=== PATIENT | male | born 1955 | race African-American/Black ===

== ENCOUNTER 2023-12-26 12:11 | Inpatient (IN) | payer OTHER, BC ==
[2023-12-26 12:56] VITALS: BMI 42.5
[2023-12-26] MEDS ORDERED: MAGNESIUM HYDROX 2400MG/30ML ORAL SUSPENSION 30 ML CUP PO PRN (14:08)
[2023-12-26] MEDS ORDERED: POLYETHYLENE GLYCOL (HEALTHYLAX) 3350 17 GM PACKET PO PRN (14:08)
[2023-12-26] MEDS ORDERED: NALOXONE HCL (KLOXXADO) 8 MG SPRAY NS PRN (14:08)
[2023-12-26] MEDS ORDERED: BISMUTH SUBSALICYLATE 262 MG/15 ML BTL PO PRN (14:08)
[2023-12-26] MEDS ORDERED: BENZONATATE 200 MG CAPSULE PO PRN (14:08)
[2023-12-26] MEDS ORDERED: guaiFENesin 600 MG TABLET.ER (FP) PO PRN (14:08)
[2023-12-26] MEDS ORDERED: ONDANSETRON *ODT* 4 MG TABLET SL PRN (14:08)
[2023-12-26] MEDS ORDERED: IBUPROFEN 400 MG TABLET (FP) PO PRN (14:08)
[2023-12-26] MEDS ORDERED: NALOXONE HCL 0.4 MG/ML VIAL IM PRN (14:08)
[2023-12-26] MEDS ORDERED: MAG HYDROX/AL HYDROX/SIMETH 30 ML UNIT-DOSE CUP PO PRN (14:08)
[2023-12-26] MEDS ORDERED: IBUPROFEN 600 MG TABLET (FP) PO PRN (14:08)
[2023-12-26] MEDS ORDERED: BENZOCAINE/MENTHOL (CHLORASEPTIC ) LOZENGE MM PRN (14:08)
[2023-12-26] MEDS ORDERED: DICYCLOMINE HCL 10 MG CAPSULE PO PRN (14:08)
[2023-12-26] MEDS ORDERED: ACETAMINOPHEN 325 MG TABLET (FP) PO PRN (14:08)
[2023-12-26] MEDS ORDERED: LOPERAMIDE HCL 2 MG CAPSULE PO PRN (14:08)
[2023-12-26] MEDS ORDERED: cloNIDine HCL 0.1 MG TABLET PO PRN (15:24)
[2023-12-26] MEDS: MELATONIN 5 MG TABLETS PO SCH (22:48)
[2023-12-26] MEDS: THIAMINE HCL 100 MG TABLET (FP) PO SCH (22:48)
[2023-12-27] MEDS: PRENATAL VITAMINS W/ FOLIC ACID TABLET (FP) PO SCH (09:43)
[2023-12-27] MEDS ORDERED: chlordiazePOXIDE HCL 25 MG CAPSULE PO PRN (10:13)
[2023-12-27] MEDS: chlordiazePOXIDE HCL 25 MG CAPSULE PO SCH (10:33)
[2023-12-27 11:58] LABS: HEMATOCRIT 36.5 % (35.4-49); HEMOGLOBIN 12.1 GM/dL (11.7-16.9); MCH 30.5 pg (25.7-33.7); MCHC 33.1 g/dl (32.0-35.9); MEAN CELL VOLUME 92.2 fl (80-96); MEAN PLT VOLUME 8.8 fl (7.5-11.1); PLATELET COUNT 197 10^3/uL (134-434); RBC 3.96 M/mm3 (4.00-5.60); RDW 13.7 % (11.9-15.9); WHITE BLOOD COUNT 7.4 K/mm3 (4.0-10.0)
[2023-12-27 12:08] LABS: CHLORIDE 108 mmol/L (98-107); POTASSIUM 3.3 mmol/L (3.5-5.1); SODIUM 143 mmol/L (136-145)
[2023-12-27 12:11] LABS: CALCIUM 8.1 mg/dL (8.5-10.1)
[2023-12-27 12:12] LABS: ANION GAP 10 mmol/L (4-13); BLOOD UREA NITROGEN 7.8 mg/dL (7-18); CO2 25 mmol/L (21-32); GLUCOSE,RANDOM 130 mg/dL (74-106)
[2023-12-27 12:15] LABS: CREATININE 0.8 mg/dL (0.55-1.3); SGOT/AST 10 U/L (15-37); SGPT/ALT 12 U/L (13-61)
[2023-12-27 12:16] LABS: BILIRUBIN,TOTAL 0.5 mg/dL (0.2-1); TOT PROT 6.4 g/dl (6.4-8.2)
[2023-12-27 12:18] LABS: ALK PHOS 61 U/L (45-117)
[2023-12-28] MEDS: POTASSIUM CHLORIDE ORAL LIQUID 20 MEQ/15 ML PO ONE ×2 (10:51→14:12)
[2023-12-29] MEDS: chlordiazePOXIDE HCL 25 MG CAPSULE PO SCH (05:30)
[2023-12-29] MEDS: amLODIPine BESYLATE 2.5 MG TABLET (FP) PO SCH (10:18)
[2023-12-30] MEDS ORDERED: chlordiazePOXIDE HCL 10 MG CAPSULE PO PRN
[2023-12-30] MEDS: chlordiazePOXIDE HCL 10 MG CAPSULE PO SCH (05:59)
[2023-12-30 07:02] VITALS: RESP 16
[2023-12-30 10:30] VITALS: BP 140/79; PULSE 85; TEMP 98.3
[2023-12-31] MEDS ORDERED: chlordiazePOXIDE HCL 10 MG CAPSULE PO SCH (05:00)
[2024-01-01] MEDS ORDERED: chlordiazePOXIDE HCL 10 MG CAPSULE PO ONE (05:00)
== END 2023-12-30 17:30 | disposition left against medical advice (07) | DRG 894 ==
LOC: YASAS 12:11 → Y6N 14:11
PROVIDERS: ADMIT Allergy & Immunology; ATTEND Surgery
PROC: HZ2ZZZZ Detoxification Services for Substance Abuse Treatment (ICD-10-PCS; principal; 2023-12-26)
DX: F10.230 Alcohol dependence with withdrawal, uncomplicated (principal); F14.20 Cocaine dependence, uncomplicated; F19.282 Other psychoactive substance dependence with psychoactive substance-induced sleep disorder; F20.0 Paranoid schizophrenia; Z59.01 Sheltered homelessness; F17.210 Nicotine dependence, cigarettes, uncomplicated; I10 Essential (primary) hypertension; E78.5 Hyperlipidemia, unspecified; E11.9 Type 2 diabetes mellitus without complications; E87.6 Hypokalemia; Z62.810 Personal history of physical and sexual abuse in childhood; Z86.19 Personal history of other infectious and parasitic diseases
CPT/HCPCS: 36415; 80053; 80305; 80307; 82962; 84132; 85027; 86593; 86780; 93005; 93010